=== PATIENT | male | born 1955 | race Two or more races ===

== ENCOUNTER 2019-09-17 13:23 | Outpatient (CLI) | payer OTHER | END 2019-09-17 13:55 | disposition home or self-care (01) | LOC: SONOGRAMA 13:23 | PROVIDERS: ATTEND Physical Medicine & Rehabilitation | DX: S86.811A Strain of other muscle(s) and tendon(s) at lower leg level, right leg, initial encounter (principal); M77.01 Medial epicondylitis, right elbow; M77.11 Lateral epicondylitis, right elbow; M19.021 Primary osteoarthritis, right elbow ==

== ENCOUNTER 2019-11-11 14:23 | Outpatient (CLI) | payer OTHER | END 2019-11-11 14:36 | disposition home or self-care (01) | LOC: RAD 14:23 | PROVIDERS: ATTEND Internal Medicine | DX: I11.9 Hypertensive heart disease without heart failure (principal) ==

== ENCOUNTER 2020-04-03 16:03 | Outpatient (CLI) | payer OTHER | END 2020-04-03 16:10 | disposition home or self-care (01) | LOC: RAD 16:03 | DX: Z01.811 Encounter for preprocedural respiratory examination (principal); H25.13 Age-related nuclear cataract, bilateral ==

== ENCOUNTER 2021-11-10 08:27 | Outpatient (CLI) | payer OTHER | END 2021-11-10 08:50 | disposition home or self-care (01) | LOC: RAD 08:27 | DX: I11.9 Hypertensive heart disease without heart failure (principal) ==

== ENCOUNTER 2023-03-15 08:50 | Outpatient (CLI) | payer OTHER | END 2023-03-15 09:00 | disposition home or self-care (01) | LOC: RAD 08:50 | PROVIDERS: ATTEND Internal Medicine | DX: I11.9 Hypertensive heart disease without heart failure (principal) ==

== ENCOUNTER 2024-02-07 08:18 | Outpatient (CLI) | payer OTHER | END 2024-02-07 08:23 | disposition home or self-care (01) | LOC: RAD 08:18 | PROVIDERS: ATTEND Internal Medicine | DX: I70.0 Atherosclerosis of aorta (principal) ==

== ENCOUNTER 2024-05-11 16:35 | Outpatient (CLI) | payer OTHER | END 2024-05-11 16:39 | disposition home or self-care (01) | LOC: RAD 16:35 | PROVIDERS: ATTEND Physical Medicine & Rehabilitation | DX: M47.816 Spondylosis without myelopathy or radiculopathy, lumbar region (principal) ==